=== PATIENT | female | born 1975 | race Caucasian/White ===

== ENCOUNTER 2018-01-27 18:21 | Emergency (ER) | END 2018-01-28 00:10 | disposition home or self-care (01) ==

== ENCOUNTER 2018-02-01 17:18 | Emergency (ER) | payer MEDICAID ==
[~2018-02-01] VITALS: Ht 162.6 cm; Wt 56.2 kg
[~2018-02-01 17:18] MED LIST: ACET325T33 PO; PREN1TAB49 PO; RANI150T35 PO
[2018-02-01 17:25] VITALS: Ht 162.6 cm; Wt 56.2 kg
[2018-02-01] MEDS ORDERED: ACETAMINOPHEN 500 MG TAB PO STA (22:13)
[2018-02-02] MEDS ORDERED: ACET500C5 PO (01:21)
[2018-02-02 01:31] VITALS: BP 101/57; PULSE 79; RESP 19
--- NOTE | 2018-02-02 01:35 | ERD ---
ER Documentation Chief Complaint Chief Complaint sent by PMD for pelvic pain to r/o ectopic HPI 42-year-old female who is approximately 5 weeks sent here by PCP for rule out ectopic . Patient states that she found out she was during a visit to this ED a week ago. At that time, the ultrasound did not show a intrauterine . She went to see a PCP today, and was sent here by PCP to rule out ectopic . Patient states that she has slight right pelvic pain, denies vaginal bleeding. Denies fever or chills. Denies dysuria. Patient is , LMP 12/30/2017. ROS All systems reviewed and are negative except as per history of present illness. Medications Home Meds Active Scripts Acetaminophen* (Tylophen*) 500 Mg Capsule, 1 CAP PO Q6H PRN for PAIN AND OR ELEVATED TEMP, #20 CAP Prov:MAI BRYSON [employer] 02/02/18 Acetaminophen* (Tylenol*) 325 Mg Tablet, 2 TAB PO Q6 PRN for PAIN AND OR ELEVATED TEMP, #20 TAB Prov:RUI MACKAY PA-C 01/27/18 Ranitidine Hcl* (Zantac*) 150 Mg Tablet, 150 MG PO BID PRN for EPIGASTRIC PAIN, #30 TAB Prov:RUI MACKAY PA-C 01/27/18 Reported Medications Vits W-Ca,Fe,Fa(<1MG) () 1 Tab Tablet, 1 TAB PO DAILY 09/22/11 Allergies Allergies: Coded Allergies: No Known Allergies (Verified Allergy, Unknown, 09/22/11) PMhx/Soc Medical and Surgical Hx: pt denies Medical Hx, pt denies Surgical Hx Hx Alcohol Use: No Hx Substance Use: No Hx Tobacco Use: No Smoking Status: Never smoker Physical Exam Vitals Vital Signs Date Temp Pulse Resp B/P (MAP) Pulse Ox O2 O2 Flow FiO2 Time Delivery Rate 02/01/18 98.7 84 20 114/64 97 17:25 (81) Physical Exam General: Well-developed, well-nourished, conscious and coherent, in no distress Skin: Warm and dry without rash, good texture and turgor Head: Normocephalic without evidence of trauma Chest: Normal AP diameter. Good expansion without retractions. Nontender. Lungs are clear to auscultate bilaterally with good tidal volume Heart: Regular rate and rhythm. No murmur, rub, or gallops heard Abdomen: Soft, very mild right pelvic tenderness without masses, guarding, or rebound. Bowel sounds are active. No hepatosplenomegaly Back: Without spinal or CVA tenderness Extremities: Full range of motion. Good strength bilaterally. No erythema, ecchymosis, or edema. Peripheral pulses are intact. Sensation intact Neuro: Alert and oriented 4, GCS 15. Cranial nerves grossly intact. Moves all extremities. Speech clear. Gait normal Results 24 hrs Laboratory Tests Test 02/01/18 22:33 Beta HCG, Quantitative 8943.2 mIU/ml Current Medications Medications Dose Sig/Jennifer Start Time Status Last (Trade) Ordered Route PRN Stop Time Admin Dose Reason Admin 500 mg ONCE STAT 02/01/18 DC 02/01/18 Acetaminophen PO 22:13 22:25 (Tylenol 02/01/18 Tab) 22:14 PROCEDURE: US OB. CLINICAL INDICATION: Vaginal bleeding in early . TECHNIQUE: Transabdominal and transvaginal views of the pelvis are available for review. COMPARISON: No prior studies are available for comparison. FINDINGS: A single intrauterine gestational sac is evident. A yolk sac is not evident. Grafton-rump length: No visible pole Gestational sac diameter: 8 mm heart rate: No visible pole Ultrasound estimated gestational age: 5 weeks 3 days by gestational sac size francisco No ovarian or adnexal mass lesion is seen. There is no free fluid. Corpus luteum lies on the right. IMPRESSION: 1. Intrauterine of undetermined viability, 5 weeks 3 days by sac size yielding an ultrasound estimated due date of 10/02/2018 concordant with menstrual dates. RPTAT:AAJJ Physician Shalini Date Time Electronically viewed and signed by Physician Shalini on 02/02/2018 01:08 GW/ CC: MAI BRYSON [employer] Procedures/MDM ED course: CBC: No evidence of severe anemia or infection. Beta hC.2 UA: No evidence of urinary tract infection. OB ultrasound: Intrauterine gestational sac is noted, without yolk sac or pole. Medical decision-making: Patient's been hCG quant has increased to 8943 from 1999's 1-week ago. There was a intrauterine gestational sac seen on ultrasound, but no pole or yolk sac is noted. At this time, I still cannot completely rule out ectopic . However, patient does not have any vaginal bleeding, she only has very mild right pelvic tenderness. I do not think any emergent intervention is indicated. Patient is advised to follow-up with an OB provider, and obtain a beta-hCG quant in 2 days. She may need a repeat ultrasound in 1 week, however that can also be done on outpatient basis. Spontaneous and ectopic instructions and return precautions provided. Medications on discharge: Tylenol. Follow-up: Primary care provider in 2 days or return to ED if worse. Departure Diagnosis: Primary Impression: Acute pain in female pelvis Condition: Stable Patient Instructions: After Age 35, Abdominal Pain, Early Referrals: POSTING [place] [address] [facility] [address] [place] [address]LEME JOSEFIN[address] [place] [place] [phone] TYFORMERLY [facility] [address] [place] [address] LAMINE [address]OL[address]INO [address] [facility] [facility] [address] [address] [address] [place] [address] [facility] [address] [place], [place] [id number] [facility] [address] - [address] [facility] [address] [address]OMELI, [place] [address] [phone] [address] [place] [address] [facility] () Usted se knowles hecho un examen mdico de control que le indica que no est en madeline condicin que requiera tratamiento urgente en el Departamento de Emergencia. Un estudio ms profundo y el tratamiento de nix condicin pueden esperar sin ningn riesgo hasta que usted sea atendida/o en el consultorio de nix mdico o madeline clnica. Es responsabilidad suya arreglar madeline hai para el seguimiento del jace. MANEJO DE CONDICIONES NO URGENTES EN EL FUTURO 1) Si usted tiene un mdico de atencin primaria: Usted debera llamar a nix mdico de atencin primaria antes de venir al departamento de emergencia. Despus de las horas de consultorio, nix doctor o nix asociado/a est disponible por telfono. El mdico o enfermero de trev en el servicio telefnico puede asesorarle por antonio medio para atender el problema, o jace contrario se puede programar madeline hai. 2) Si usted no tiene un mdico de atencin primaria: Llame al mdico o clnica de referencia que aparece abajo jerson las horas de consultorio para hacer madeline hai para que le vean. CLINICAS: [facility] [phone] [facility] [phone] [facility] [phone] [address] [facility]. [facility] [phone] [address] [facility]. [facility] [phone] 7731 [facility]. [phone] [address] Additional Instructions: Llame al doctor MAANA y antoinette madeline HAI PARA DENTRO DE 2-3 MCCONNELL.Dgale a la secretaria que nosotros le instruimos hacer esta hai.Avise o llame si nix condicin se empeora antes de la hai. Regresa aqui si peor o no mejor. MAI BRYSON. REEMA Feb 02, 2018 01:34
== END 2018-02-02 01:33 | disposition home or self-care (01) ==
LOC: FTE 17:18
DX: O26.891 Other specified pregnancy related conditions, first trimester (principal); R10.2 Pelvic and perineal pain; R40.2412 Glasgow coma scale score 13-15, at arrival to emergency department; Z3A.01 Less than 8 weeks gestation of pregnancy
CPT/HCPCS: 76801; 76817; 84702; Z7502; Z7610